=== PATIENT | male | born 1995 | race American Indian/Alaskan Native ===

== ENCOUNTER 2020-01-06 01:49 | Emergency (ER) | payer OTHER ==
[2020-01-06 03:45] VITALS: BP 131/83
--- NOTE | 2020-01-06 04:32 | XRay Report ---
RIGHT HAND 3 VIEWS RIGHT WRIST 3 VIEWS INDICATION: Right hand and wrist pain. COMPARISON: No relevant prior imaging study available. FINDINGS: Right hand: No acute fracture or dislocation. No significant soft tissue abnormality. Right wrist: No acute fracture or dislocation. Carpal alignment is normal. No significant soft tissue abnormality. IMPRESSION: 1. No acute findings. CHEST 1 VIEW INDICATION: upper chest pain. COMPARISON: None. FINDINGS: Support devices: None. Heart: Normal. Lungs/Pleura: No acute pulmonary or pleural findings. IMPRESSION: 1. No acute findings. Signer Name: Rodolfo Erickson MD Signed: 01/06/2020 4:27 AM Workstation Name: [id number]
--- NOTE | 2020-01-06 05:10 | XRay Report ---
LEFT HIP AND PELVIS 2 VIEWS INDICATION: left hip pain. COMPARISON: No relevant prior imaging study available. FINDINGS: No significant skeletal abnormality. No soft tissue calcifications or foreign bodies. IMPRESSION: 1. No acute findings. Signer Name: Rodolfo Erickson MD Signed: 01/06/2020 5:06 AM Workstation Name: [id number]
== END 2020-01-06 06:03 ==
LOC: ED 01:49
DX: M25.531 Pain in right wrist (principal); M25.552 Pain in left hip; M25.542 Pain in joints of left hand; R07.89 Other chest pain; Z53.21 Procedure and treatment not carried out due to patient leaving prior to being seen by health care provider; V89.2XXA Person injured in unspecified motor-vehicle accident, traffic, initial encounter; Y93.89 Activity, other specified; Y92.410 Unspecified street and highway as the place of occurrence of the external cause; Y99.8 Other external cause status
CPT/HCPCS: 71045